=== PATIENT | female | born 1985 | race Caucasian/White ===

== ENCOUNTER 2016-06-11 21:32 | Inpatient (IN) | payer MEDICAID ==
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
--- NOTE | ~2016-06-11 | DS ---
Unit #: [id number] #: [id number] Patient: KARON COLE [id number] [facility] [address] [place] [address] [id number] MR#: [id number] NAME: KARON COLE. ROOM: P185 Age: 30 Sex: F Admission Date: 06/11/2016 : 1985 Discharge Date: 06/13/2016 Attending Physician: Ramiro Boyer M.D. Primary Care Physician: Generic Doctor Not In System DISCHARGE SUMMARY REASON FOR ADMISSION Karon is a 30-year-old woman with previous admission to this facility who showed up at the [facility] in an intoxicated state reporting she had been drinking a great deal of beer and using alprazolam by snorting. She was placed on a 72-hour hold after making suicidal statements and transferred to [facility]. DIAGNOSTIC STUDIES LABORATORY RESULTS: Please see hospital chart for available laboratories. HOSPITAL COURSE The patient was admitted and placed on suicide precautions and the benzodiazepine alcohol detox protocol. Fluoxetine was restarted. The patient had minimal detox symptomatology and denied suicidal ideation after admission. She was pleasant and cooperative and on the date of discharge, she once again contracted for safety with no suicidal ideation, intent, or plan. DISCHARGE DIAGNOSES AXIS I: Alcohol dependence, benzodiazepine dependence, and depressive disorder, not otherwise specified. AXIS II: Borderline personality disorder. AXIS III: Polysubstance withdrawal, resolved. AXIS IV: AXIS V: DISCHARGE INSTRUCTIONS Follow up with intensive outpatient programing. DISCHARGE MEDICATIONS The patient was continued on fluoxetine 40 mg daily prescribed by her primary care physician. CONDITION AT DISCHARGE Improved. PROGNOSIS Fair and will improve with ongoing sobriety and compliance. DIET AND ACTIVITY Per primary care doctor. Unit #: [id number] #: [id number] Patient: KARON COLE Dictated by... Se FerrerH/lidia TD: 06/14/2016 00:02 JOB #: [id number] DISCHARGE SUMMARY X Ramiro Boyer MD X DISCHARGE SUMMARY
--- NOTE | ~2016-06-11 | HP ---
Unit #: [id number] #: [id number] Patient: KARON COLE [id number] [place] [address] [id number] MR#: [id number] NAME: KARON COLE. ROOM: P185 Age: 30 Sex: F Admission Date: 06/11/2016 : 1985 Attending Physician: Ramiro Boyer M.D. Admitting Physician: Ramiro Boyer M.D. Primary Care Physician: Generic Doctor Not In System HISTORY AND PHYSICAL HISTORY OF PRESENT ILLNESS Karon is a 30 year old admitted to [facility] because of her polysubstance abuse which includes alcohol and benzodiazepines that she buys off the street. This has never been prescribed to her. PAST MEDICAL HISTORY Long history of polysubstance abuse. PAST SURGICAL HISTORY Nothing reported. ALLERGIES Penicillin. SOCIAL HISTORY Smokes 1 pack per day. Drinks to the point of being drunk at least 2 days a week, up to 20 beers and admits to regular abuse of benzodiazepines. FAMILY HISTORY Medically noncontributory. REVIEW OF SYSTEMS CONSTITUTIONAL: No fever or chills. HEENT: Denies any sore throat, ear pain or runny nose. CARDIOVASCULAR: Denies chest pain, irregular heart rhythm or palpitations. CHEST: Denies shortness of breath or cough. No hemoptysis. GASTROINTESTINAL: Denies nausea, vomiting, diarrhea or chronic constipation. ENDOCRINE: Denies history of increased thirst or urination. No recent significant weight loss or gain. GENITOURINARY: Denies dysuria, frequency, or hematuria. SKIN: Denies any rashes. HEMATOLOGIC: Denies history of increased bleeding or bruising. MUSCULOSKELETAL: Denies any hot, swollen joints. No generalized muscle pain. NEUROLOGIC: Denies problems with vision or speech. No frequent, severe headaches. No numbness, tingling or weakness in any extremities. Denies loss of bladder or bowel control. CURRENT MEDICATIONS 1. Detox protocol. 2. Prozac 40 mg daily. Unit #: [id number] #: [id number] Patient: KARON COLE PHYSICAL EXAMINATION GENERAL: Alert, well-nourished, in no apparent distress. VITAL SIGNS: Blood pressure 100/70, heart rate 80, respirations 16, temperature 98.6. WEIGHT: 135. HEIGHT: 5 feet 1 inch. SKIN: Warm and dry without rash. She has multiple linear cuts along her left arm and left ankle. These areas have scabbed over. There is no increased redness, swelling, heat or pus noted. HEENT: Normocephalic. TMs not viewed. Oral and nasal passages clear. Conjunctivae clear. PERRLA. EOMs intact. NECK: Supple without lymphadenopathy or thyromegaly. HEART: Regular rate and rhythm without murmur. LUNGS: Clear. ABDOMEN: Soft, nontender. : Not done. EXTREMITIES: No evidence of cyanosis, clubbing or edema. Moves all without focal deficit. NEUROLOGICAL: Grossly within normal limits. Cranial Nerves: II: Visual rodriguez are intact. III, IV AND : Extraocular movements are intact. Pupils are equal, round and reactive to light. V: Facial sensation is grossly normal. VII: Facial movements and expression are normal. VIII: Auditory acuity grossly intact. IX, X: Uvula is midline. Phonation is normal. XI: Patient shrugs shoulders and turns head normally. XII: Tongue protrudes in the midline. Sensory and Motor Function: Sensory and motor sensation is grossly normal. Motor: moves all extremities well. Coordination: Gait is normal. Deep Tendon Reflexes: Intact. IMPRESSION 1. Psychiatric admission. 2. Self-harming behavior sustained prior to this admission. RECOMMENDATIONS PSYCHIATRIC: Per psychiatrist. MEDICAL: See no contraindications to participate in facility's activities. MEDICAL PROGNOSIS Good. MEDICAL CONDITION Stable. Dictated by... Magalie Morales P.A.-C. for Se Ba/hair TD: 06/12/2016 21:04 JOB #: [id number] Unit #: [id number] #: [id number] Patient: KARON COLE HISTORY AND PHYSICAL X Magalie Morales HISTORY AND PHYSICAL
== END 2016-06-13 13:00 | disposition home or self-care (01) | DRG 897 ==
LOC: P1E 21:32
PROC: HZ2ZZZZ Detoxification Services for Substance Abuse Treatment (ICD-10-PCS; principal; 2016-06-11)
DX: F10.20 Alcohol dependence, uncomplicated (principal); F13.20 Sedative, hypnotic or anxiolytic dependence, uncomplicated; F17.210 Nicotine dependence, cigarettes, uncomplicated; Z88.0 Allergy status to penicillin; Z88.2 Allergy status to sulfonamides